=== PATIENT | female | born 1955 | race Caucasian/White ===

== ENCOUNTER 2023-05-23 06:30 | Day surgery (SDC) | payer BC ==
[~2023-05-23 06:30] MED LIST: Lidocaine 1% 5 ML VIAL ONE; Midazolam 1 MG/ML 2 ML SDV ONE; Propofol 200 MG/20 ML SDV ONE; Sodium Chloride 0.9% 10 ML Syringe FLUSH PRN; Sodium Chloride 0.9% 10 ML Syringe FLUSH SCH; fentaNYL 100 MCG/2 ML SDV ONE
[2023-05-23] MEDS ORDERED: ceFAZolin 2 GM Vial ONE (06:34)
[2023-05-23] MEDS: Lactated Ringers 1,000 ML IV SCH (06:45)
[2023-05-23] MEDS ORDERED: Ondansetron 4 MG/2 ML SDV IVPUSH PRN (06:54)
[2023-05-23] MEDS ORDERED: HYDROmorphone 0.5 MG/0.5 ML Syringe IVPUSH PRN (06:54)
[2023-05-23] MEDS ORDERED: fentaNYL 100 MCG/2 ML SDV IVPUSH PRN (06:54)
[2023-05-23] MEDS ORDERED: Ondansetron 4 MG/2 ML SDV ONE (07:37)
[2023-05-23] MEDS: Bupivacaine 0.25% 10 ML SDV ONE (07:41)
[2023-05-23] MEDS: Lidocaine 1% 10 ML MDV ONE (07:41)
[2023-05-23] MEDS ORDERED: Ketorolac 30 MG/ML SDV ONE (08:00)
== END 2023-05-23 09:05 | disposition home or self-care (01) ==
LOC: JD.SDS 06:30
PROVIDERS: ATTEND Orthopaedic Surgery
DX: G56.11 Other lesions of median nerve, right upper limb (principal); G56.01 Carpal tunnel syndrome, right upper limb; I10 Essential (primary) hypertension; G47.33 Obstructive sleep apnea (adult) (pediatric); E66.9 Obesity, unspecified; K21.9 Gastro-esophageal reflux disease without esophagitis; Z79.899 Other long term (current) drug therapy
CPT/HCPCS: 64721; J0690; J1885; J2250; J2405; J2704; J3010; J3490; J7120; 01810

== ENCOUNTER 2023-06-28 07:09 | Day surgery (SDC) | payer BC ==
[~2023-06-28 07:09] MED LIST changes: -Midazolam 1 MG/ML 2 ML SDV ONE; +ceFAZolin 2 GM Vial ONE
[2023-06-28] MEDS: Lactated Ringers 1,000 ML IV SCH (07:30)
[2023-06-28] MEDS ORDERED: Midazolam 1 MG/ML 2 ML SDV ONE (07:35)
[2023-06-28] MEDS ORDERED: Ondansetron 4 MG/2 ML SDV ONE (08:16)
[2023-06-28] MEDS ORDERED: Ketorolac 30 MG/ML SDV ONE (08:20)
[2023-06-28] MEDS: Bupivacaine 0.25% 10 ML SDV ONE (08:32)
[2023-06-28] MEDS: Lidocaine 1% 10 ML MDV ONE (08:32)
== END 2023-06-28 10:00 | disposition home or self-care (01) ==
LOC: JD.SDS 07:09
PROVIDERS: ATTEND Orthopaedic Surgery
DX: G56.12 Other lesions of median nerve, left upper limb (principal); I10 Essential (primary) hypertension; K21.9 Gastro-esophageal reflux disease without esophagitis; G47.30 Sleep apnea, unspecified; E66.9 Obesity, unspecified
CPT/HCPCS: 64721; J0690; J1885; J2250; J2405; J2704; J3010; J3490; J7120; 01810